=== PATIENT | female | born 1945 | race African-American/Black ===

== ENCOUNTER 2018-11-22 20:12 | Inpatient (IN) | payer MEDICARE ==
[2018-11-22] MEDS ORDERED: hydrALAZINE 20 MG/ML VIAL ONE (20:36)
--- NOTE | 2018-11-22 20:46 | CT ---
CT head noncontrast HISTORY: Headache. COMPARISON: 11/21/2013. FINDINGS: There is no evidence of acute intracranial hemorrhage or infarct. Diffuse cortical atrophy and mild chronic ischemic. No mass effect or shift of midline structures. Visualized paranasal sinuses remain well-aerated. IMPRESSION: Chronic-type findings are stable. No acute intracranial abnormalities are demonstrated.
--- NOTE | 2018-11-22 20:53 | RAD ---
CHEST ONE VIEW: 11/22/18 INDICATION: Blurred vision and dizziness. COMPARISON: PA and lateral of the chest dated 05/05/14. FINDINGS: There is stable cardiomegaly. Lungs are clear. No pleural effusion is evident. There are vascular el cifications involving the aortic arch which is stable. No acute osseous abnormality is noted. IMPRESSION: Stable cardiomegaly. POS: BH
[2018-11-22 21:16] LABS: #Basophils 0.1 thou/uL (0.0-0.2); #Eosinphils 0.2 thou/uL (0.0-0.7); #Monocytes 0.4 thou/uL (0.11-0.59); #Neutrophils 2.1 thou/uL (1.40-6.50); %Basophils 1.7 % (0.0-1.0); %Eosinophils 3.6 % (0.0-10.0); %Lymphocytes 41.5 % (21.0-51.0); %Neutrophils 44.2 % (42.0-75.0); Hemoglobin 14.2 g/dL (12.0-16.0); Mean Corpuscular HGB CONC 33.8 g/dL (32.0-36.0); Mean Corpuscular Hemoglobin 32.3 pg (27.0-31.0); Mean Corpuscular Volume 95.5 fL (78.0-98.0); Mean Platelet Volume 8.1 fL (7.4-10.4); Platelet Count 188 thou/uL (130-400); RBC Distribution Width 13.7 % (11.5-14.5); Red Blood Cell (RBC) Count 4.41 mill/uL (4.20-5.40); White Blood Cell (WBC) Count 4.7 thou/uL (4.8-10.8)
[2018-11-22 21:37] LABS: ALT (SGPT) 8 U/L (8-55); AST (SGOT) 12 U/L (5-34); Albumin 3.4 g/dL (3.4-4.8); Alkaline Phosphatase 87 U/L (40-150); Anion Gap 14 mmol/L (10-20); BUN (Urea Nitrogen) 30 mg/dL (9.8-20.1); Bilirubin, Total 0.2 mg/dL (0.2-1.2); Calc. Creatinine Clearance 0 mL/min (70-130); Calcium 8.8 mg/dL (7.8-10.44); Carbon Dioxide 17 mmol/L (23-31); Chloride 109 mmol/L (98-107); Estimated GFR-MDRD 52; Glucose 97 mg/dL (83-110); Magnesium 2.2 mg/dL (1.6-2.6); Potassium 3.7 mmol/L (3.5-5.1); Protein, Total 6.4 g/dL (6.0-8.3); Sodium 136 mmol/L (136-145)
[2018-11-22] MEDS ORDERED: Aspirin Chewable 81 MG TAB ONE ×2 (22:50)
[2018-11-22] MEDS ORDERED: Fentanyl 100 MCG/2 ML VIAL ONE (23:30)
[2018-11-23 01:11] LABS: Troponin I 0.011 ng/mL (< 0.028)
[2018-11-23] MEDS ORDERED: Ondansetron PF 4 MG/2 ML Vial IVP PRN (02:30)
[2018-11-23] MEDS ORDERED: Acetaminophen 325 MG TAB PO PRN (02:30)
[2018-11-23] MEDS ORDERED: Ondansetron ODT 4 MG TAB PO PRN (02:30)
[2018-11-23 03:18] LABS: #Eosinphils 0.2 thou/uL (0.0-0.7); #Lymphocytes 2.5 thou/uL (1.20-3.40); #Monocytes 0.4 thou/uL (0.11-0.59); %Basophils 0.9 % (0.0-1.0); %Eosinophils 3.4 % (0.0-10.0); %Lymphocytes 49.5 % (21.0-51.0); %Neutrophils 39.2 % (42.0-75.0); Mean Corpuscular HGB CONC 33.5 g/dL (32.0-36.0); Mean Corpuscular Volume 95.6 fL (78.0-98.0); Mean Platelet Volume 7.8 fL (7.4-10.4); Platelet Count 208 thou/uL (130-400); Red Blood Cell (RBC) Count 4.39 mill/uL (4.20-5.40); White Blood Cell (WBC) Count 5.1 thou/uL (4.8-10.8)
[2018-11-23 03:41] LABS: Troponin I Less than 0.010 ng/mL (< 0.028)
[2018-11-23 03:52] LABS: Anion Gap 14 mmol/L (10-20); BUN (Urea Nitrogen) 28 mg/dL (9.8-20.1); Calc. Creatinine Clearance 0 mL/min (70-130); Calcium 8.9 mg/dL (7.8-10.44); Carbon Dioxide 19 mmol/L (23-31); Chloride 110 mmol/L (98-107); Estimated GFR-MDRD 55; Glucose 96 mg/dL (83-110); Potassium 3.7 mmol/L (3.5-5.1); Sodium 139 mmol/L (136-145)
--- NOTE | 2018-11-23 05:18 | HP ---
PRIMARY CARE DOCTOR: Jeanette Palacios MD. CODE STATUS: Full code. TIME OF EVALUATION: 12:20 a.m. CHIEF COMPLAINT: High blood pressure. HISTORY OF PRESENT ILLNESS: This is a 73-year-old female patient with past medical history of hypertension. She reported was compliant with medication, came to the hospital after having severe headache that started in the morning, basically has associated very high blood pressure, left faith and left eye tenderness and blurred vision with no clear triggers, no associating factors, no alleviating factors. She also reported that the headache has been present for the past 3 days, started insidiously and has been gradually getting worse and she was having inability to do her activities of daily living. REVIEW OF SYSTEMS: All systems were reviewed and negative except for the findings mentioned above. Additionally, patient has a GI reported as having constipation. PAST MEDICAL HISTORY: As mentioned in HPI. PAST SURGICAL HISTORY: Oophorectomy of the right ovary, hysterectomy. PSYCHIATRIC HISTORY: Includes anxiety. FAMILY HISTORY:Reviewed and non contributory for current presentation SOCIAL HISTORY: The patient drinks socially every week. The patient denies drug use. Currently uses tobacco. Smokes cigarettes. The patient smokes one pack per day. KNOWN ALLERGIES: Codeine and penicillins. REPORTED MEDICATIONS: 1. Clonidine. 2. Amlodipine. 3. Metoprolol. PHYSICAL EXAMINATION: VITAL SIGNS: On presentation, blood pressure 214/75 with heart rate 60, respiratory rate was 19, temperature 98.1. Pain was 6/10. Oxygen saturation was 97% on room air. The blood pressure has gradually been improving, the last one was 135/56, heart rate 49, respiratory rate was 20. GENERAL APPEARANCE: The patient is alert, oriented, no acute distress. HEENT: Eyes, normal conjunctivae. Moist oral mucosa. Anicteric. No JVD. RESPIRATORY: Bilateral air entry. No rales. No wheezing. Symmetric expansion. CARDIOVASCULAR: Normal rate, regular rhythm. No murmurs. No edema. ABDOMEN: Soft. Normal bowel sounds. MUSCULOSKELETAL: Baseline range of motion and strength. SKIN: Warm, intact. No pallor. No rash. No redness. Capillary refill seems to intact. NEUROLOGIC: No evidence of any new focal weakness. Cranial nerves seems to be intact. PSYCHIATRIC: The patient is in good mood. No anxiety. Optimal judgment. Patient willing to go home. DIAGNOSTIC DATA: EKG was reviewed. The patient has sinus rhythm with occasional PVCs, ventricular rate 64, OK 132, QRS 82, QT corrected 505. LABORATORY DATA: Reviewed. The patient has a white count of 5.1, hemoglobin 14.2, MCV 95, platelet count 188. Sodium 136, potassium 3.7, chloride 109, carbon dioxide 17, anion gap 14, BUN 30, creatinine 1.22, GFR 52, glucose 97, calcium 9.8, magnesium 2.2, total bilirubin 0.2. AST 12, ALT 8, alkaline phosphatase 87. Troponin was negative x2. Beta natriuretic peptide 269. Albumin to globulin ratio is 1.1. Brain CT was done and there is no evidence of acute intracranial hemorrhage or infarct, diffuse cortical atrophy and mild chronic ischemic, no mass effect or shift of midline structures visualized, paranasal sinus remains well aerated. Chest x-ray, stable cardiomegaly. ASSESSMENT AND PLAN: The patient will be placed in the hospital for the following medical problems. 1. Hypertensive urgency. The patient has some initial symptoms of headache and blurred vision. After blood pressure was controlled, symptoms have improved. The patient has no significant target organ damage. Blood pressure medications have been restarted. We will monitor and adjust treatment as needed. 2. Acute hypertensive encephalopathy on presentation given headache and blurred vision associated with hypertension. This has resolved after blood pressure being controlled. We will monitor and treat underlying etiology. 3. Mildly elevated BUN and creatinine. We will give some mild hydration, the blood pressure is better and we will monitor kidney function. 4. Deep vein thrombosis prophylaxis. Job ID: [id number] [facility]
[2018-11-23] MEDS: Sodium Chloride 0.9% 1,000 ML IV SCH ×2 (06:40→20:01)
[2018-11-23] MEDS ORDERED: Amlodipine 5 MG TAB ONE (08:36)
[2018-11-23] MEDS ORDERED: Enoxaparin Sodium 40 MG/0.4 ML SYRINGE ONE (08:37)
[2018-11-23] MEDS: Amlodipine 10 MG TAB PO SCH (09:51)
[2018-11-23] MEDS: Enoxaparin Sodium 40 MG/0.4 ML SYRINGE SC SCH (09:52)
[2018-11-23] MEDS: Carvedilol 3.125 MG TAB PO SCH ×2 (10:28→18:00)
[2018-11-23 12:29] VITALS: BMI 24.5
[2018-11-23] MEDS: hydrALAZINE 20 MG/ML VIAL SLOW IVP PRN (13:08)
[2018-11-23] MEDS ORDERED: cloNIDine 0.1 MG TAB PO PRN (14:35)
[2018-11-23] MEDS: cloNIDine 0.1 MG TAB PO SCH ×2 (15:15→20:01)
[2018-11-23] MEDS ORDERED: Nitroglycerin 0.4 MG TAB (25 Tab Bottle) PO PRN (17:07)
[2018-11-23] MEDS: Atorvastatin Calcium 40 MG TAB PO SCH (20:01)
[2018-11-24] MEDS: hydrALAZINE 20 MG/ML VIAL SLOW IVP PRN ×2 (04:00→23:40)
[2018-11-24 06:02] LABS: Anion Gap 13 mmol/L (10-20); BUN (Urea Nitrogen) 23 mg/dL (9.8-20.1); Calc. Creatinine Clearance 42 mL/min (70-130); Calcium 9.1 mg/dL (7.8-10.44); Carbon Dioxide 19 mmol/L (23-31); Chloride 112 mmol/L (98-107); Estimated GFR-MDRD 56; Glucose 96 mg/dL (83-110); Potassium 3.7 mmol/L (3.5-5.1); Sodium 140 mmol/L (136-145)
[2018-11-24] MEDS ORDERED: ALPRAZolam 0.25 MG TAB PO PRN (08:22)
[2018-11-24] MEDS: cloNIDine 0.1 MG TAB PO SCH ×3 (08:37→21:05)
[2018-11-24] MEDS: Enoxaparin Sodium 40 MG/0.4 ML SYRINGE SC SCH (08:37)
[2018-11-24] MEDS: Carvedilol 3.125 MG TAB PO SCH ×2 (08:37→16:13)
[2018-11-24] MEDS: Amlodipine 10 MG TAB PO SCH (08:37)
[2018-11-24] MEDS ORDERED: Diazepam 5 MG TAB PO SCH (10:15)
[2018-11-24] MEDS: Sodium Chloride 0.9% 1,000 ML IV SCH (10:31)
--- NOTE | 2018-11-24 11:29 | PDOC.HOSPP ---
- Subjective Encounter Date: 11/24/18 Encounter Time: 09:45 Subjective: Patient seen and examined for HTN crisis. No CP or SOB. No new complaints. No overnight events - Objective Vital Signs & Weight: Vital Signs (12 hours) Temp Pulse Resp BP BP Pulse Ox 11/24/18 10:15 65 174/77 H 11/24/18 08:30 97.6 F 83 18 207/84 H 98 11/24/18 04:00 97.8 F 60 18 175/74 H 178/81 H 95 11/23/18 23:51 135/60 Weight Weight 138 lb 14.4 oz I&O: 11/23/18 11/24/18 11/25/18 06:59 06:59 06:59 Intake Total 2240 Output Total 675 Balance 1565 Result Diagrams: 11/23/18 03:09 11/24/18 05:14 EKG Reviewed by me: Yes (Tele SR) Hospitalist ROS - Review of Systems Cardiovascular: denies: chest pain, palpitations, orthopnea, paroxysmal noc. dyspnea, edema, light headedness, other Gastrointestinal: denies: nausea, vomitting, abdominal pain, diarrhea, constipation, melena, hematochezia, other Neurological: denies: weakness, numbness, incoordination, change in speech, confusion, seizures - Medication Medications: Active Medications Generic Name Dose Route Start Last Admin Trade Name Freq PRN Reason Stop Dose Admin Acetaminophen 650 mg 11/23/18 02:30 11/23/18 20:01 Tylenol PO 650 mg Q4H PRN Administration Headache/Fever/Mild Pain (1-3) Alprazolam 0.25 mg 11/24/18 08:22 11/24/18 08:37 Xanax PO 0.25 mg BIDPRN PRN Administration Anxiety Amlodipine Besylate 10 mg 11/23/18 09:00 11/24/18 08:37 Norvasc PO 10 mg DAILY HALIMA Administration Atorvastatin Calcium 40 mg 11/23/18 21:00 11/23/18 20:01 Lipitor PO 40 mg HS HALIMA Administration Carvedilol 3.125 mg 11/23/18 08:00 11/24/18 08:37 Coreg PO 3.125 mg BID-WM HALIMA Administration Clonidine 0.1 mg 11/23/18 15:00 11/24/18 08:37 Catapres PO 0.1 mg TID HALIMA Administration Diazepam 5 mg 11/24/18 10:15 11/24/18 10:44 Valium PO 11/24/18 12:15 5 mg NOW HALIMA Administration Enoxaparin Sodium 40 mg 11/23/18 09:00 11/24/18 08:37 Lovenox SC 40 mg 0900 HAILMA Administration Hydralazine HCl 10 mg 11/23/18 02:52 11/24/18 04:00 Apresoline SLOW IVP 10 mg Q4H PRN Administration BP>160/100 - Exam General Appearance: NAD Neck: supple, no JVD Heart: RRR, no murmur, no gallops, no rubs Respiratory: CTAB, no wheezes, no rales, no ronchi Gastrointestinal: soft, non-tender, non-distended, normal bowel sounds Extremities: no edema Neurological: CN's grossly intact, no weakness, no new deficit, vision deficit ( Ophthalmic exam yesterday - limited due to Cataract in Left eye) Psychiatric: normal affect, A&O x 3 Hosp A/P (1) Malignant hypertension Code(s): I10 - ESSENTIAL (PRIMARY) HYPERTENSION Status: Acute (2) Anxiety Code(s): F41.9 - ANXIETY DISORDER, UNSPECIFIED Status: Chronic (3) Tobacco abuse Code(s): Z72.0 - TOBACCO USE Status: Chronic (4) Blurred vision, bilateral Code(s): H53.8 - OTHER VISUAL DISTURBANCES Status: Acute (5) CKD (chronic kidney disease) stage 3, GFR 30-59 ml/min Code(s): N18.3 - CHRONIC KIDNEY DISEASE, STAGE 3 (MODERATE) Status: Chronic - Plan plan discussed w/ family, DVT proph w/SCDs Cont Clonidine scheduled and PRN Cont home dose of Valium Cont Amldodipine and Coreg Await Echo Await Ophthal input Ambulate DC in 24 hr if BP stable DC IVF
[2018-11-24] MEDS: Diazepam 5 MG TAB PO SCH ×2 (14:58→21:05)
[2018-11-24] MEDS: Atorvastatin Calcium 40 MG TAB PO SCH (21:05)
[2018-11-25 07:19] VITALS: BP 153/76; TEMP 97.8
[2018-11-25] MEDS: Amlodipine 10 MG TAB PO SCH (08:32)
[2018-11-25] MEDS: Diazepam 5 MG TAB PO SCH (08:33)
[2018-11-25] MEDS: cloNIDine 0.1 MG TAB PO SCH (08:33)
[2018-11-25] MEDS: Carvedilol 3.125 MG TAB PO SCH (08:33)
--- NOTE | 2018-11-26 10:11 | DIS ---
DATE OF ADMISSION: 11/23/2018 DATE OF DISCHARGE: 11/25/2018 DISCHARGE DISPOSITION: Home. FOLLOWUP: 1. Follow up with primary care physician, Dr. Jeanette Palacios in 1 week. 2. Follow up with ophthalmology Dr. Rudy Pizano in 1 to 2 weeks. The patient was seen and examined on the day of discharge. Denies any new complaints. No chest pain, shortness of breath, palpitations. Blood pressure on the day of discharge was 152/63 and 153/76. DISCHARGE MEDICATIONS: Metoprolol was changed to carvedilol 3.125 mg b.i.d. All other home medications were left unchanged. The patient was extensively counseled on medication compliance. BRIEF HOSPITAL COURSE: The patient is a 73-year-old female with hypertension, presented to the hospital with elevated blood pressure along with some blurriness of vision. Her blood pressure per EMS was in 230s. In the emergency room, her blood pressure was 214/75. She received 10 mg hydralazine that improved her blood pressure in 170s. She was monitored on the telemetry unit. Echocardiogram showed left ventricular ejection fraction of 60% to 65% with mild concentric left ventricular hypertrophy, mild to moderate aortic regurgitation, mild tricuspid regurgitation and markedly elevated pulmonary artery pressure. She was also evaluated by Ophthalmology. Her limited examination was negative for retinal hemorrhage or papilledema. Metoprolol has been changed to carvedilol. Her blood pressure has stabilized. She was advised to follow up with Pulmonary for possible sleep study due to elevated pulmonary artery pressure. She appears stable for discharge. FINAL DIAGNOSES: 1. Malignant hypertension, suspected to be secondary to medication noncompliance. 2. Anxiety. 3. Tobacco dependence. 4. Blurriness of vision bilaterally secondary to #1. There was no acute findings per professor of historical theology. 5. Chronic kidney disease, stage 3. 6. Anxiety. 7. Hyperlipidemia. 8. Metabolic acidosis. 9. Chronic kidney disease, stage 3. 10. Mild to moderate aortic regurgitation. 11. Mild tricuspid regurgitation. 12. Suspected sleep apnea. 13. Hypertensive heart disease. Job ID: [id number]
--- NOTE | 2018-11-27 09:00 | CON ---
DATE OF CONSULTATION: CHIEF COMPLAINT: Blurred vision. HISTORY OF PRESENT ILLNESS: This is a 73-year-old woman, who about 5 days earlier, began developing dizziness and then blurred vision, came to the hospital with hypertension. She states that her vision was much better 2 weeks previously. Past history, review of systems, and allergies was reviewed in the chart. PHYSICAL EXAMINATION: HEENT: On examination, visual acuity at near with her reading glasses is J-3 each eye, which is relatively good, approximating 20/40 vision. Intra-ocular pressure with Ben-Pen 24 and 22 in the right eye and 23 and 19 mmHg in the left eye. Pupils were about 4 mm, equal and reactive without defect. Ocular motility was aligned and full. She was then dilated with Jacob-Synephrine and Mydriacyl. Anterior segment exam showed about 2+ nuclear sclerotic cataracts and some cortical opacities. Optic nerves, had distinct margins and no elevation, with cup/disk ratio of 0.7, each eye. The macula and vessels were normal. There was no hemorrhages or exudates or ischemic infarcts, or narrowing of vessels. Midperipheral retinal exam was normal, without any retinal elevation. IMPRESSION AND PLAN: 1. Cataracts. 2. There were no vascular defects. 3. Because of the optic nerve appearance, she is a glaucoma suspect and she was recommended to have ophthalmic follow-up in the near future. Job ID: [id number] [facility]
== END 2018-11-25 12:11 | disposition home or self-care (01) | DRG 305 ==
LOC: ERS 20:12 → ERHOLD 11-23 00:01 → 2NO 11-23 00:38
PROVIDERS: ADMIT Hospitalist; ATTEND Hospitalist
DX: I16.0 Hypertensive urgency (principal); I67.4 Hypertensive encephalopathy; E87.2 Acidosis; F41.9 Anxiety disorder, unspecified; F17.210 Nicotine dependence, cigarettes, uncomplicated; I12.9 Hypertensive chronic kidney disease with stage 1 through stage 4 chronic kidney disease, or unspecified chronic kidney disease; N18.3 Chronic kidney disease, stage 3 (moderate); H53.8 Other visual disturbances; H26.9 Unspecified cataract; E78.5 Hyperlipidemia, unspecified; I08.2 Rheumatic disorders of both aortic and tricuspid valves; G47.30 Sleep apnea, unspecified; I11.9 Hypertensive heart disease without heart failure; Z88.5 Allergy status to narcotic agent; Z88.0 Allergy status to penicillin; Z79.899 Other long term (current) drug therapy; Z90.710 Acquired absence of both cervix and uterus; Z91.14 Patient's other noncompliance with medication regimen
CPT/HCPCS: 36415; 70450; 71045; 80048; 80053; 83735; 83880; 84484; 85025; 93005; 93306; 94760; 96374; 96375; J0360; J1650; J3010

== ENCOUNTER 2020-12-18 20:54 | Inpatient (IN) | payer MEDICARE ==
[2020-12-19] MEDS ORDERED: Acetaminophen 325 MG TAB PO PRN (01:21)
[2020-12-19] MEDS ORDERED: Nicotine 14 MG PATCH TD SCH (01:30)
[2020-12-19] MEDS ORDERED: Diazepam 5 MG TAB PO PRN (01:32)
[2020-12-19] MEDS ORDERED: Enoxaparin Sodium 60 MG/0.6 ML SYRINGE SC SCH (02:00)
[2020-12-19] MEDS: Furosemide 40 MG/4 ML VIAL SLOW IVP SCH ×2 (05:54→15:09)
[2020-12-19 06:15] LABS: #Eosinphils 0.1 thou/uL (0.0-0.7); #Lymphocytes 1.8 thou/uL (1.20-3.40); #Monocytes 0.6 thou/uL (0.11-0.59); #Neutrophils 3.1 thou/uL (1.40-6.50); %Basophils 0.6 % (0.0-1.0); %Eosinophils 2.4 % (0.0-10.0); %Lymphocytes 32.1 % (21.0-51.0); %Monocytes 9.9 % (0.0-10.0); %Neutrophils 55.1 % (42.0-75.0); Hemoglobin 14.3 g/dL (12.0-16.0); Mean Corpuscular HGB CONC 33.5 g/dL (32.0-36.0); Mean Corpuscular Hemoglobin 33.9 pg (27.0-31.0); Mean Platelet Volume 8.9 fL (7.4-10.4); Platelet Count 175 thou/uL (130-400); RBC Distribution Width 14.5 % (11.5-14.5); Red Blood Cell (RBC) Count 4.23 mill/uL (4.20-5.40); White Blood Cell (WBC) Count 5.5 thou/uL (4.8-10.8)
[2020-12-19 06:39] LABS: Anion Gap 15 mmol/L (10-20); BUN (Urea Nitrogen) 30 mg/dL (9.8-20.1); Calc. Creatinine Clearance 33 mL/min (70-130); Calcium 8.1 mg/dL (7.8-10.44); Carbon Dioxide 18 mmol/L (23-31); Chloride 111 mmol/L (98-107); Glucose 92 mg/dL (83-110); Magnesium 2.3 mg/dL (1.6-2.6); Potassium 4.2 mmol/L (3.5-5.1); Sodium 140 mmol/L (136-145)
[2020-12-19] MEDS ORDERED: Carvedilol 3.125 MG TAB PO SCH (08:00)
[2020-12-19] MEDS ORDERED: Amlodipine 10 MG TAB PO SCH (09:00)
[2020-12-19] MEDS ORDERED: Enoxaparin Sodium 30 MG/0.3 ML SYRINGE SC SCH (09:00)
[2020-12-19] MEDS: Allopurinol 100 MG TAB PO SCH (09:48)
[2020-12-19] MEDS: cloNIDine 0.1 MG TAB PO SCH ×3 (09:48→20:24)
[2020-12-19] MEDS: Carvedilol 6.25 MG TAB PO SCH ×2 (18:14→18:22)
[2020-12-19] MEDS: Amiodarone 200 MG TAB PO SCH (20:24)
[2020-12-19] MEDS: Amitriptyline HCl 10 MG TAB PO SCH (20:24)
[2020-12-19] MEDS: Atorvastatin Calcium 40 MG TAB PO SCH (20:25)
[2020-12-20 05:41] LABS: Anion Gap 12 mmol/L (10-20); BUN (Urea Nitrogen) 32 mg/dL (9.8-20.1); Calc. Creatinine Clearance 28 mL/min (70-130); Calcium 8.2 mg/dL (7.8-10.44); Carbon Dioxide 24 mmol/L (23-31); Cardiac Risk 3.6 (Less than 4.5); Chloride 108 mmol/L (98-107); Cholesterol 135 mg/dl (< 200 Desired); Glucose 101 mg/dL (83-110); HDL Cholesterol 37 mg/dL (>60 Neg Risk); LDL Cholesterol, Calculated 78 mg/dL; Sodium 140 mmol/L (136-145); Triglycerides 99 mg/dL (Less than 150)
[2020-12-20] MEDS: Furosemide 40 MG/4 ML VIAL SLOW IVP SCH ×2 (06:24→16:20)
[2020-12-20] MEDS: Allopurinol 100 MG TAB PO SCH (09:38)
[2020-12-20] MEDS: Amiodarone 200 MG TAB PO SCH ×2 (09:39→21:10)
[2020-12-20] MEDS: Carvedilol 6.25 MG TAB PO SCH ×2 (09:39→18:18)
[2020-12-20] MEDS: cloNIDine 0.1 MG TAB PO SCH ×3 (09:40→21:12)
[2020-12-20] MEDS: Atorvastatin Calcium 40 MG TAB PO SCH (21:11)
[2020-12-20] MEDS: Amitriptyline HCl 10 MG TAB PO SCH (21:18)
[2020-12-21 05:51] LABS: Anion Gap 11 mmol/L (10-20); BUN (Urea Nitrogen) 30 mg/dL (9.8-20.1); Calc. Creatinine Clearance 32 mL/min (70-130); Carbon Dioxide 24 mmol/L (23-31); Chloride 108 mmol/L (98-107); Glucose 94 mg/dL (83-110); Potassium 4.1 mmol/L (3.5-5.1); Sodium 139 mmol/L (136-145)
[2020-12-21] MEDS: Furosemide 40 MG/4 ML VIAL SLOW IVP SCH (06:06)
[2020-12-21] MEDS: Allopurinol 100 MG TAB PO SCH (09:26)
[2020-12-21] MEDS: Carvedilol 6.25 MG TAB PO SCH ×2 (09:27→17:18)
[2020-12-21] MEDS: Amiodarone 200 MG TAB PO SCH ×2 (09:27→20:54)
[2020-12-21] MEDS: cloNIDine 0.1 MG TAB PO SCH ×2 (09:27→20:55)
[2020-12-21] MEDS: Atorvastatin Calcium 40 MG TAB PO SCH (20:55)
[2020-12-21] MEDS: Amitriptyline HCl 10 MG TAB PO SCH (20:55)
[2020-12-21] MEDS: Apixaban 2.5 MG TAB PO SCH (20:55)
[2020-12-22 06:20] LABS: Anion Gap 13 mmol/L (10-20); BUN (Urea Nitrogen) 32 mg/dL (9.8-20.1); Calc. Creatinine Clearance 27 mL/min (70-130); Calcium 8.6 mg/dL (7.8-10.44); Carbon Dioxide 26 mmol/L (23-31); Chloride 107 mmol/L (98-107); Glucose 112 mg/dL (83-110); Sodium 142 mmol/L (136-145)
[2020-12-22 06:39] VITALS: BMI 22.8
[2020-12-22] MEDS ORDERED: Furosemide 20 MG TAB PO SCH (09:00)
[2020-12-22] MEDS: cloNIDine 0.1 MG TAB PO SCH (09:34)
[2020-12-22] MEDS: Carvedilol 6.25 MG TAB PO SCH (09:34)
[2020-12-22] MEDS: Amiodarone 200 MG TAB PO SCH (09:34)
[2020-12-22] MEDS: Allopurinol 100 MG TAB PO SCH (09:55)
[2020-12-22] MEDS: Apixaban 2.5 MG TAB PO SCH (09:55)
[2020-12-22 12:34] VITALS: BP 117/57; TEMP 98.2
[2021-01-02] MEDS ORDERED: Amiodarone 200 MG TAB PO SCH (09:00)
[2021-01-16] MEDS ORDERED: Amiodarone 200 MG TAB PO SCH (09:00)
== END 2020-12-22 16:00 | disposition home or self-care (01) | DRG 291 ==
LOC: 2SW 20:54 → OBSVTOIN 12-19 01:21
PROVIDERS: ADMIT Internal Medicine; ATTEND Family Medicine
DX: I13.0 Hypertensive heart and chronic kidney disease with heart failure and stage 1 through stage 4 chronic kidney disease, or unspecified chronic kidney disease (principal); I50.31 Acute diastolic (congestive) heart failure; J96.01 Acute respiratory failure with hypoxia; Z66 Do not resuscitate; N17.9 Acute kidney failure, unspecified; I48.91 Unspecified atrial fibrillation; F41.9 Anxiety disorder, unspecified; N18.30 Chronic kidney disease, stage 3 unspecified; I27.20 Pulmonary hypertension, unspecified; F17.210 Nicotine dependence, cigarettes, uncomplicated; E78.00 Pure hypercholesterolemia, unspecified; Z88.5 Allergy status to narcotic agent; Z88.0 Allergy status to penicillin; Z79.899 Other long term (current) drug therapy; Z90.710 Acquired absence of both cervix and uterus; Z71.6 Tobacco abuse counseling
CPT/HCPCS: 36415; 80048; 80061; 83735; 84443; 85025; 93306; 93798; J1650; J1940

== ENCOUNTER 2021-01-29 00:55 | Inpatient (IN) | payer MEDICARE ==
[2021-01-29] MEDS ORDERED: Magnesium 2 GM/50 ML BAG (IN WATER) ONE (01:19)
[2021-01-29 01:38] LABS: #Eosinphils 0.1 thou/uL (0.0-0.7); #Lymphocytes 1.8 thou/uL (1.20-3.40); #Monocytes 0.5 thou/uL (0.11-0.59); #Neutrophils 2.7 thou/uL (1.40-6.50); %Basophils 0.2 % (0.0-1.0); %Eosinophils 1.3 % (0.0-10.0); %Lymphocytes 36.5 % (21.0-51.0); %Monocytes 9.1 % (0.0-10.0); %Neutrophils 52.9 % (42.0-75.0); Mean Corpuscular HGB CONC 33.4 g/dL (32.0-36.0); Mean Corpuscular Hemoglobin 33.1 pg (27.0-31.0); Mean Corpuscular Volume 99.1 fL (78.0-98.0); Mean Platelet Volume 8.4 fL (7.4-10.4); Platelet Count 161 thou/uL (130-400); RBC Distribution Width 15.1 % (11.5-14.5); Red Blood Cell (RBC) Count 3.93 mill/uL (4.20-5.40)
[2021-01-29] MEDS ORDERED: methylPREDNISolone Sod Succ/PF 125 MG/2 ML VIAL ONE (01:45)
[2021-01-29] MEDS ORDERED: Albuterol Sulfate 1.25 MG/3 ML NEB ONE (01:48)
[2021-01-29 02:02] LABS: ALT (SGPT) 20 U/L (8-55); AST (SGOT) 19 U/L (5-34); Albumin 3.3 g/dL (3.4-4.8); Alkaline Phosphatase 102 U/L (40-110); Anion Gap 16 mmol/L (10-20); BUN (Urea Nitrogen) 71 mg/dL (9.8-20.1); Bilirubin, Total 0.5 mg/dL (0.2-1.2); Calc. Creatinine Clearance 0 mL/min (70-130); Calcium 8.3 mg/dL (7.8-10.44); Carbon Dioxide 22 mmol/L (23-31); Chloride 107 mmol/L (98-107); Globulin 2.8 g/dL (2.4-3.5); Glucose 104 mg/dL (83-110); Lipase 221 U/L (8-78); Potassium 3.7 mmol/L (3.5-5.1); Protein, Total 6.1 g/dL (5.8-8.1); Sodium 141 mmol/L (136-145)
[2021-01-29] MEDS ORDERED: Furosemide 40 MG/4 ML VIAL ONE (04:05)
[2021-01-29] MEDS ORDERED: DOBUTamine 500 mg/250 ml 250 ML ONE (04:06)
[2021-01-29] MEDS ORDERED: Nitroglycerin 0.4mg/Hour PATCH ONE (04:06)
[2021-01-29] MEDS ORDERED: Nitroglycerin 2% Ointment 1 INCH/1 GM Packet ONE (04:28)
[2021-01-29 04:46] LABS: SARS-CoV-2 NAA Rapid Test Not Detected (NotDetected)
[2021-01-29] MEDS ORDERED: Ondansetron PF 4 MG/2 ML Vial IVP PRN (04:59)
[2021-01-29] MEDS ORDERED: Acetaminophen 325 MG TAB PO PRN (04:59)
[2021-01-29] MEDS ORDERED: Acetaminophen 650 MG Suppository PR PRN (04:59)
[2021-01-29] MEDS ORDERED: Ondansetron ODT 4 MG TAB PO PRN (04:59)
[2021-01-29] MEDS ORDERED: metroNIDAZOLE 500 MG in Premix Bag 1 BAG IVPB SCH (05:21)
[2021-01-29] MEDS ORDERED: Doxycycline 100 MG in Syringe 0 ML IVPB SCH (05:21)
[2021-01-29] MEDS ORDERED: CEFEPIME HCL IN DEXTROSE 5 % 1 GM/50 ML BAG IVPB SCH (05:30)
[2021-01-29] MEDS ORDERED: Enoxaparin Sodium 60 MG/0.6 ML SYRINGE SC SCH (05:33)
[2021-01-29] MEDS ORDERED: Potassium Chloride 20 MEQ TAB PO SCH (05:45)
[2021-01-29] MEDS ORDERED: hydrALAZINE 20 MG/ML VIAL SLOW IVP PRN (05:50)
[2021-01-29] MEDS ORDERED: Labetalol HCl 100 MG/20 ML VIAL SLOW IVP PRN (05:50)
[2021-01-29 06:16] LABS: Troponin I 0.016 ng/mL (< 0.028)
[2021-01-29] MEDS ORDERED: Aspirin Chewable 81 MG TAB ONE (06:33)
[2021-01-29] MEDS ORDERED: niCARdipine 25 MG in Sodium Chloride 0.9% 250 ML 250 ML IVPB SCH (07:30)
[2021-01-29] MEDS ORDERED: niCARdipine 25 MG in Sodium Chloride 0.9% 250 ML 240 ML IVPB SCH (07:30)
[2021-01-29] MEDS ORDERED: Enoxaparin Sodium 80 MG/0.8 ML SYRINGE SC SCH (09:00)
[2021-01-29] MEDS ORDERED: Amlodipine 10 MG TAB PO SCH (09:00)
[2021-01-29] MEDS ORDERED: Furosemide 40 MG/4 ML VIAL SLOW IVP SCH (09:00)
[2021-01-29] MEDS ORDERED: Furosemide 20 MG TAB PO SCH (09:00)
[2021-01-29] MEDS ORDERED: hydrALAZINE 25 MG TAB ONE (09:09)
[2021-01-29] MEDS ORDERED: Furosemide 40 MG TAB ONE (09:09)
[2021-01-29 09:55] LABS: Troponin I 0.011 ng/mL (< 0.028)
[2021-01-29 10:55] LABS: Bilirubin Negative (Negative); Blood, Urine Negative (Negative); Glucose, Urine (Dipstick) Negative (Negative); Ketone, Urine Negative (Negative); Leukocyte Negative (Negative); Nitrite Negative (Negative); Protein, Urine (Dipstick) Negative (Neg-Trace); Urobilinogen 0.2 mg/dL (Less than 2)
[2021-01-29 11:00] LABS: Clarity Clear (Clear); Specific Gravity, Urine 1.006 (1.002-1.036)
[2021-01-29] MEDS: hydrALAZINE 25 MG TAB PO SCH ×3 (11:02→19:48)
[2021-01-29 11:03] LABS: Bacteria/HPF None Seen HPF (None Seen); RBC/HPF 0-3 HPF (0-3); Squamous Epithelial None Seen HPF (0-3); WBC/HPF 0-3 HPF (0-3)
[2021-01-29] MEDS: NIFEdipine XL 90 MG TAB PO SCH (11:03)
[2021-01-29] MEDS: Cefepime 2 GM in Sodium Chloride 0.9% 100 ML IVPB SCH (11:05)
[2021-01-29] MEDS ORDERED: Cefepime 2 GM VIAL ONE (11:07)
[2021-01-29 13:03] VITALS: BMI 23.3
[2021-01-29] MEDS: Clindamycin/D5W 600 MG in Premix Bag 1 BAG IVPB SCH ×3 (13:04→22:44)
[2021-01-29] MEDS ORDERED: FLU VACC QS2021-22(65YR UP)/PF 240 MCG/0.7 ML SYRINGE IM ONE (14:00)
[2021-01-29 15:57] LABS: Creatinine, Urine 25.35 mg/dL (47-110)
[2021-01-29 16:53] LABS: Albumin 3.5 g/dL (3.4-4.8); Anion Gap 18 mmol/L (10-20); BUN (Urea Nitrogen) 70 mg/dL (9.8-20.1); BUN/Creatinine Ratio 23.26; Calc. Creatinine Clearance 15 mL/min (70-130); Carbon Dioxide 20 mmol/L (23-31); Chloride 104 mmol/L (98-107); Glucose 142 mg/dL (83-110); Phosphorus 3.7 mg/dL (2.3-4.7); Sodium 138 mmol/L (136-145)
[2021-01-29] MEDS ORDERED: Carvedilol 6.25 MG TAB PO SCH (17:00)
[2021-01-29] MEDS ORDERED: Melatonin 3 MG TAB PO PRN (22:01)
[2021-01-30 05:22] LABS: #Lymphocytes 1.4 thou/uL (1.20-3.40); #Monocytes 0.6 thou/uL (0.11-0.59); #Neutrophils 4.4 thou/uL (1.40-6.50); %Basophils 0.3 % (0.0-1.0); %Lymphocytes 22.2 % (21.0-51.0); %Monocytes 8.8 % (0.0-10.0); %Neutrophils 68.6 % (42.0-75.0); Hemoglobin 13.1 g/dL (12.0-16.0); Mean Corpuscular HGB CONC 32.2 g/dL (32.0-36.0); Mean Corpuscular Hemoglobin 31.9 pg (27.0-31.0); Mean Corpuscular Volume 98.9 fL (78.0-98.0); Mean Platelet Volume 9.4 fL (7.4-10.4); Platelet Count 192 thou/uL (130-400); RBC Distribution Width 15.5 % (11.5-14.5); Red Blood Cell (RBC) Count 4.13 mill/uL (4.20-5.40); White Blood Cell (WBC) Count 6.4 thou/uL (4.8-10.8)
[2021-01-30] MEDS: Clindamycin/D5W 600 MG in Premix Bag 1 BAG IVPB SCH ×3 (05:38→21:45)
[2021-01-30 05:51] LABS: Anion Gap 18 mmol/L (10-20); BUN (Urea Nitrogen) 75 mg/dL (9.8-20.1); Calc. Creatinine Clearance 13 mL/min (70-130); Calcium 8.9 mg/dL (7.8-10.44); Carbon Dioxide 21 mmol/L (23-31); Chloride 102 mmol/L (98-107); Glucose 125 mg/dL (83-110); Potassium 3.7 mmol/L (3.5-5.1); Sodium 137 mmol/L (136-145)
[2021-01-30] MEDS: Cefepime 2 GM in Sodium Chloride 0.9% 100 ML IVPB SCH (08:35)
[2021-01-30] MEDS: NIFEdipine XL 90 MG TAB PO SCH (08:36)
[2021-01-30] MEDS: hydrALAZINE 25 MG TAB PO SCH ×3 (08:36→21:44)
[2021-01-30] MEDS ORDERED: Enoxaparin Sodium 80 MG/0.8 ML SYRINGE SC SCH (09:00)
[2021-01-30] MEDS ORDERED: Furosemide 40 MG/4 ML VIAL ONE (10:36)
[2021-01-30] MEDS ORDERED: Furosemide 40 MG/4 ML VIAL SLOW IVP SCH ×2 (11:00→15:30)
[2021-01-30 11:01] LABS: #Lymphocytes 1.8 thou/uL (1.20-3.40); #Monocytes 0.7 thou/uL (0.11-0.59); %Basophils 0.5 % (0.0-1.0); %Lymphocytes 21.3 % (21.0-51.0); %Monocytes 8.5 % (0.0-10.0); %Neutrophils 69.8 % (42.0-75.0); Hemoglobin 14.2 g/dL (12.0-16.0); Mean Corpuscular HGB CONC 31.9 g/dL (32.0-36.0); Mean Corpuscular Hemoglobin 31.4 pg (27.0-31.0); Mean Corpuscular Volume 98.4 fL (78.0-98.0); Mean Platelet Volume 8.6 fL (7.4-10.4); Platelet Count 204 thou/uL (130-400); RBC Distribution Width 15.4 % (11.5-14.5); Red Blood Cell (RBC) Count 4.51 mill/uL (4.20-5.40); White Blood Cell (WBC) Count 8.5 thou/uL (4.8-10.8)
[2021-01-30] MEDS ORDERED: Morphine 2 MG/ML VIAL SLOW IVP SCH (11:15)
[2021-01-30] MEDS ORDERED: Morphine 4 MG/ML VIAL SLOW IVP SCH (11:15)
[2021-01-30 11:19] LABS: Lactic Acid 1.3 mmol/L (0.5-2.2)
[2021-01-30 11:23] LABS: ALT (SGPT) 19 U/L (8-55); AST (SGOT) 15 U/L (5-34); Albumin 3.8 g/dL (3.4-4.8); Alkaline Phosphatase 112 U/L (40-110); Anion Gap 17 mmol/L (10-20); BUN (Urea Nitrogen) 76 mg/dL (9.8-20.1); Bilirubin, Total 0.6 mg/dL (0.2-1.2); Calc. Creatinine Clearance 13 mL/min (70-130); Calcium 8.9 mg/dL (7.8-10.44); Carbon Dioxide 21 mmol/L (23-31); Chloride 102 mmol/L (98-107); Globulin 3.1 g/dL (2.4-3.5); Glucose 131 mg/dL (83-110); Potassium 3.9 mmol/L (3.5-5.1); Protein, Total 6.9 g/dL (5.8-8.1); Sodium 136 mmol/L (136-145)
[2021-01-30 11:27] LABS: CKMB 1.2 ng/mL (0-6.6); Troponin I 0.016 ng/mL (< 0.028)
[2021-01-30 13:41] LABS: Troponin I 0.012 ng/mL (< 0.028)
[2021-01-30] MEDS ORDERED: Morphine 4 MG/ML VIAL SLOW IVP PRN (18:26)
[2021-01-30] MEDS: Amiodarone 200 MG TAB PO SCH (21:45)
[2021-01-31] MEDS: Clindamycin/D5W 600 MG in Premix Bag 1 BAG IVPB SCH ×3 (05:15→21:32)
[2021-01-31] MEDS ORDERED: Amlodipine 10 MG TAB PO SCH (09:00)
[2021-01-31 09:39] LABS: Chloride 105 mmol/L (98-107); Potassium 3.6 mmol/L (3.5-5.1); Sodium 138 mmol/L (136-145)
[2021-01-31] MEDS: Enoxaparin Sodium 60 MG/0.6 ML SYRINGE SC SCH (09:39)
[2021-01-31 09:40] LABS: Calcium 8.6 mg/dL (7.8-10.44); Glucose 91 mg/dL (83-110)
[2021-01-31] MEDS: NIFEdipine XL 90 MG TAB PO SCH (09:41)
[2021-01-31] MEDS: hydrALAZINE 25 MG TAB PO SCH ×3 (09:41→21:31)
[2021-01-31] MEDS: Amiodarone 200 MG TAB PO SCH ×2 (09:41→21:30)
[2021-01-31 09:42] LABS: Anion Gap 17 mmol/L (10-20); Carbon Dioxide 20 mmol/L (23-31)
[2021-01-31 09:44] LABS: BUN (Urea Nitrogen) 70 mg/dL (9.8-20.1); Calc. Creatinine Clearance 14 mL/min (70-130)
[2021-01-31] MEDS: Cefepime 2 GM in Sodium Chloride 0.9% 100 ML IVPB SCH (09:49)
[2021-01-31] MEDS ORDERED: Furosemide 40 MG/4 ML VIAL SLOW IVP SCH (10:30)
[2021-01-31] MEDS ORDERED: Metolazone 5 MG TAB PO SCH (10:30)
[2021-01-31] MEDS ORDERED: guaiFENesin ER 600 MG TAB PO SCH ×2 (17:15→21:00)
[2021-01-31] MEDS: Furosemide 40 MG/4 ML VIAL SLOW IVP SCH (21:31)
[2021-02-01] MEDS: Clindamycin/D5W 600 MG in Premix Bag 1 BAG IVPB SCH ×3 (05:41→22:12)
[2021-02-01 07:19] LABS: Albumin 3.5 g/dL (3.4-4.8); Anion Gap 17 mmol/L (10-20); BUN (Urea Nitrogen) 70 mg/dL (9.8-20.1); BUN/Creatinine Ratio 22.51; Calc. Creatinine Clearance 14 mL/min (70-130); Calcium 9.2 mg/dL (7.8-10.44); Carbon Dioxide 21 mmol/L (23-31); Chloride 102 mmol/L (98-107); Glucose 91 mg/dL (83-110); Phosphorus 4.8 mg/dL (2.3-4.7); Potassium 3.3 mmol/L (3.5-5.1); Sodium 137 mmol/L (136-145)
[2021-02-01] MEDS ORDERED: Amlodipine 10 MG TAB PO SCH (09:00)
[2021-02-01] MEDS: hydrALAZINE 25 MG TAB PO SCH ×3 (09:42→20:47)
[2021-02-01] MEDS: Amiodarone 200 MG TAB PO SCH (09:42)
[2021-02-01] MEDS: Cefepime 2 GM in Sodium Chloride 0.9% 100 ML IVPB SCH (09:43)
[2021-02-01] MEDS: Enoxaparin Sodium 60 MG/0.6 ML SYRINGE SC SCH (09:43)
[2021-02-01] MEDS: Furosemide 40 MG/4 ML VIAL SLOW IVP SCH (09:43)
[2021-02-01] MEDS: guaiFENesin ER 600 MG TAB PO SCH ×2 (09:44→20:41)
[2021-02-01] MEDS: Lorazepam 2 MG/ML VIAL SLOW IVP PRN (11:52)
[2021-02-01] MEDS: Scopolamine 1.5 mg/72 hour Patch TD SCH (11:53)
[2021-02-01] MEDS: Morphine 4 MG/ML VIAL SLOW IVP PRN (12:47)
[2021-02-02] MEDS: Amiodarone 200 MG TAB PO SCH ×3 (04:11→20:21)
[2021-02-02 04:19] LABS: Albumin 3.1 g/dL (3.4-4.8); Anion Gap 19 mmol/L (10-20); BUN (Urea Nitrogen) 72 mg/dL (9.8-20.1); Calc. Creatinine Clearance 15 mL/min (70-130); Calcium 9.4 mg/dL (7.8-10.44); Carbon Dioxide 20 mmol/L (23-31); Chloride 101 mmol/L (98-107); Glucose 85 mg/dL (83-110); Phosphorus 5.5 mg/dL (2.3-4.7); Potassium 3.2 mmol/L (3.5-5.1); Sodium 137 mmol/L (136-145)
[2021-02-02] MEDS: Clindamycin/D5W 600 MG in Premix Bag 1 BAG IVPB SCH ×2 (05:40→14:35)
[2021-02-02] MEDS ORDERED: Potassium Chloride 20 MEQ TAB PO SCH (06:15)
[2021-02-02] MEDS ORDERED: Lorazepam 2 MG/ML VIAL ONE (07:19)
[2021-02-02 08:01] LABS: Magnesium 2.4 mg/dL (1.6-2.6)
[2021-02-02] MEDS: Cefepime 2 GM in Sodium Chloride 0.9% 100 ML IVPB SCH (08:48)
[2021-02-02] MEDS: hydrALAZINE 25 MG TAB PO SCH ×3 (08:49→20:21)
[2021-02-02] MEDS: guaiFENesin ER 600 MG TAB PO SCH ×2 (08:49→20:19)
[2021-02-02] MEDS: Enoxaparin Sodium 60 MG/0.6 ML SYRINGE SC SCH (08:49)
[2021-02-03] MEDS: Morphine 4 MG/ML VIAL SLOW IVP PRN (02:37)
[2021-02-03 04:32] LABS: Albumin 3.2 g/dL (3.4-4.8); Anion Gap 20 mmol/L (10-20); BUN (Urea Nitrogen) 75 mg/dL (9.8-20.1); BUN/Creatinine Ratio 27.37; Calc. Creatinine Clearance 16 mL/min (70-130); Calcium 9.5 mg/dL (7.8-10.44); Carbon Dioxide 20 mmol/L (23-31); Chloride 103 mmol/L (98-107); Glucose 90 mg/dL (83-110); Potassium 3.6 mmol/L (3.5-5.1); Sodium 139 mmol/L (136-145)
[2021-02-03] MEDS: Enoxaparin Sodium 60 MG/0.6 ML SYRINGE SC SCH (09:10)
[2021-02-03] MEDS: hydrALAZINE 25 MG TAB PO SCH ×3 (09:10→20:51)
[2021-02-03] MEDS: Amiodarone 200 MG TAB PO SCH (09:11)
[2021-02-03] MEDS: Cefepime 2 GM in Sodium Chloride 0.9% 100 ML IVPB SCH (09:11)
[2021-02-03] MEDS: guaiFENesin ER 600 MG TAB PO SCH ×2 (09:11→20:51)
[2021-02-04] MEDS: Lorazepam 2 MG/ML VIAL SLOW IVP PRN ×2 (00:43→21:25)
[2021-02-04 04:24] LABS: Hemoglobin 14.2 g/dL (12.0-16.0); Mean Corpuscular HGB CONC 32.6 g/dL (32.0-36.0); Mean Corpuscular Hemoglobin 32.5 pg (27.0-31.0); Mean Corpuscular Volume 99.7 fL (78.0-98.0); Mean Platelet Volume 9.6 fL (7.4-10.4); Platelet Count 150 thou/uL (130-400); RBC Distribution Width 14.7 % (11.5-14.5); Red Blood Cell (RBC) Count 4.36 mill/uL (4.20-5.40); White Blood Cell (WBC) Count 4.9 thou/uL (4.8-10.8)
[2021-02-04 04:48] LABS: Albumin 2.9 g/dL (3.4-4.8); Anion Gap 17 mmol/L (10-20); BUN (Urea Nitrogen) 73 mg/dL (9.8-20.1); BUN/Creatinine Ratio 30.42; Calc. Creatinine Clearance 0 mL/min (70-130); Calcium 9.5 mg/dL (7.8-10.44); Carbon Dioxide 22 mmol/L (23-31); Chloride 104 mmol/L (98-107); Glucose 77 mg/dL (83-110); Phosphorus 3.7 mg/dL (2.3-4.7); Potassium 3.5 mmol/L (3.5-5.1); Sodium 139 mmol/L (136-145)
[2021-02-04] MEDS: Amiodarone 200 MG TAB PO SCH (08:21)
[2021-02-04] MEDS: Cefepime 2 GM in Sodium Chloride 0.9% 100 ML IVPB SCH (08:21)
[2021-02-04] MEDS: guaiFENesin ER 600 MG TAB PO SCH ×2 (08:21→21:30)
[2021-02-04] MEDS: Enoxaparin Sodium 60 MG/0.6 ML SYRINGE SC SCH (08:21)
[2021-02-04] MEDS: hydrALAZINE 25 MG TAB PO SCH ×3 (08:21→21:30)
[2021-02-04] MEDS: Scopolamine 1.5 mg/72 hour Patch TD SCH (12:21)
[2021-02-04] MEDS ORDERED: Cefepime 2 GM in Sodium Chloride 0.9% 100 ML IVPB SCH (14:51)
[2021-02-04] MEDS ORDERED: Amlodipine 5 MG TAB PO SCH (15:15)
[2021-02-04] MEDS: Apixaban 2.5 MG TAB PO SCH (21:29)
[2021-02-04] MEDS: Sildenafil Citrate 20 MG TAB PO SCH (21:30)
[2021-02-04] MEDS: Morphine 4 MG/ML VIAL SLOW IVP PRN (22:53)
[2021-02-05] MEDS: Morphine 4 MG/ML VIAL SLOW IVP PRN (03:46)
[2021-02-05 04:39] LABS: Albumin 3.1 g/dL (3.4-4.8); Anion Gap 16 mmol/L (10-20); BUN (Urea Nitrogen) 70 mg/dL (9.8-20.1); BUN/Creatinine Ratio 34.83; Calc. Creatinine Clearance 19 mL/min (70-130); Calcium 10.1 mg/dL (7.8-10.44); Carbon Dioxide 23 mmol/L (23-31); Chloride 105 mmol/L (98-107); Glucose 96 mg/dL (83-110); Phosphorus 2.9 mg/dL (2.3-4.7); Potassium 3.3 mmol/L (3.5-5.1); Sodium 141 mmol/L (136-145)
[2021-02-05] MEDS ORDERED: Potassium Chloride 20 MEQ TAB PO SCH (06:15)
[2021-02-05 06:49] LABS: Magnesium 2.4 mg/dL (1.6-2.6)
[2021-02-05] MEDS ORDERED: Cefdinir 300 MG CAP PO SCH (09:00)
[2021-02-05] MEDS ORDERED: Amlodipine 5 MG TAB PO SCH (09:00)
[2021-02-05] MEDS: hydrALAZINE 25 MG TAB PO SCH ×2 (09:11→12:13)
[2021-02-05] MEDS: guaiFENesin ER 600 MG TAB PO SCH (09:15)
[2021-02-05] MEDS: Amiodarone 200 MG TAB PO SCH (09:16)
[2021-02-05] MEDS: Apixaban 2.5 MG TAB PO SCH (10:38)
[2021-02-05] MEDS: Sildenafil Citrate 20 MG TAB PO SCH (10:38)
[2021-02-05 12:32] VITALS: BP 208/86; TEMP 97
[2021-02-05 17:24] LABS: SARS-CoV-2 PCR by NAA Not Detected (NotDetected)
== END 2021-02-05 15:46 | disposition hospice, inpatient (51) | DRG 193 ==
LOC: ERS 00:55 → ERHOLD 08:50 → 2NO 12:48 → IMCU/EMU 01-30 12:27 → ONC 02-04 19:19
PROVIDERS: ADMIT Internal Medicine; ATTEND Internal Medicine
PROC: 5A09357 Assistance with Respiratory Ventilation, Less than 24 Consecutive Hours, Continuous Positive Airway Pressure (ICD-10-PCS; 2021-01-30)
PROC: 5A0945A Assistance with Respiratory Ventilation, 24-96 Consecutive Hours, High Flow/Velocity Cannula (ICD-10-PCS; principal; 2021-01-31)
DX: J18.1 Lobar pneumonia, unspecified organism (principal); Z20.822 Contact with and (suspected) exposure to COVID-19; Z51.5 Encounter for palliative care; Z66 Do not resuscitate; I50.33 Acute on chronic diastolic (congestive) heart failure; J96.01 Acute respiratory failure with hypoxia; I26.93 Single subsegmental thrombotic pulmonary embolism without acute cor pulmonale; I13.0 Hypertensive heart and chronic kidney disease with heart failure and stage 1 through stage 4 chronic kidney disease, or unspecified chronic kidney disease; N17.9 Acute kidney failure, unspecified; I16.1 Hypertensive emergency; I27.20 Pulmonary hypertension, unspecified; I48.0 Paroxysmal atrial fibrillation; N18.30 Chronic kidney disease, stage 3 unspecified; F17.210 Nicotine dependence, cigarettes, uncomplicated; F41.9 Anxiety disorder, unspecified; F32.A Depression, unspecified; E78.5 Hyperlipidemia, unspecified; I49.5 Sick sinus syndrome; I08.3 Combined rheumatic disorders of mitral, aortic and tricuspid valves; R91.8 Other nonspecific abnormal finding of lung field; J43.9 Emphysema, unspecified; E87.6 Hypokalemia; Z28.21 Immunization not carried out because of patient refusal; Z86.711 Personal history of pulmonary embolism; Z88.5 Allergy status to narcotic agent; Z88.0 Allergy status to penicillin; Z79.899 Other long term (current) drug therapy; Z79.01 Long term (current) use of anticoagulants; Z90.710 Acquired absence of both cervix and uterus; Z90.5 Acquired absence of kidney
CPT/HCPCS: 36415; 36416; 71045; 71275; 76770; 80048; 80053; 80069; 81003; 82553; 82570; 83605; 83690; 83735; 83880; 84300; 84484; 84540; 85025; 85027; 87086; 93005; 93010; 93306; 93970; 94660; 96365; 96366; 96368; 96375; J0360; J0692; J1250; J1650; J1940; J2060; J2270; J2930; J3475; J3490; J7050; J7620; U0002; U0003; U0005